=== PATIENT | male | born 1975 | race Caucasian/White ===

== ENCOUNTER 2018-09-10 18:39 | Emergency (ER) | payer OTHER ==
[~2018-09-10] VITALS: Ht 175.3 cm; Wt 99.5 kg
[2018-09-10 18:48] VITALS: BP 119/81; PULSE 110; RESP 20; Ht 175.3 cm; Wt 99.5 kg
[2018-09-10] MEDS ORDERED: predniSONE 20 MG TAB PO ONE (19:30)
[2018-09-10] MEDS ORDERED: DIPHENHYDRAMINE 50 MG INJ IM ONE (19:30)
[2018-09-10] MEDS ORDERED: FAMOTIDINE 20 MG TAB PO ONE (19:30)
[2018-09-10] MEDS ORDERED: DIPHTH/TET/ACEL PERTUSS (ADULT) 0.5 ML VIAL IM* ONE (19:30)
[2018-09-10] MEDS ORDERED: PRED20TA PO (19:49)
[2018-09-10] MEDS ORDERED: BEN50 PO (19:49)
--- NOTE | 2018-09-10 19:52 | ERD ---
ER Documentation Chief Complaint Chief Complaint states bee sting left side of neck 3 hours ago, c/o neck redness/sob HPI 43-year-old male presents with complaint of bee sting. States that he got stung the left side of his neck 3 hours ago. Since then he said he experienced itching all over his body which is since subsided. Denies any wheezing, respiratory distress, vomiting, abdominal pain, dizziness. States that he is not up-to-date on his vaccines. ROS All systems reviewed and are negative except as per history of present illness. Medications Home Meds Active Scripts Prednisone* (Prednisone*) 20 Mg Tab, 60 MG PO DAILY for 4 Days, TAB Prov:STAN PINEDA 09/10/18 Diphenhydramine Hcl* (Benadryl*) 50 Mg Cap, 50 MG PO Q6H PRN for ITCHING/RASH, #30 CAP Prov:STAN PINEDA 09/10/18 Allergies Allergies: Coded Allergies: No Known Drug Allergies (Verified Allergy, Unknown, 09/10/18) PMhx/Soc Medical and Surgical Hx: pt denies Medical Hx, pt denies Surgical Hx Hx Alcohol Use: No Hx Substance Use: No Hx Tobacco Use: No Smoking Status: Never smoker FmHx Family History: No diabetes, No coronary disease, No other Physical Exam Vitals Vital Signs Date Temp Pulse Resp B/P (MAP) Pulse Ox O2 O2 Flow FiO2 Time Delivery Rate 09/10/18 97.6 110 20 119/81 100 18:48 (94) Physical Exam Const: No acute distress Head: Atraumatic Eyes: Normal Conjunctiva ENT: Normal External Ears, Nose and Mouth. Airway is patent and clear. There is no tongue edema. There is no angioedema noted. Neck: Full range of motion. No meningismus. Resp: Clear to auscultation bilaterally Cardio: Regular rate and rhythm, no murmurs Abd: Soft, non tender, non distended. Normal bowel sounds Skin: No petechiae or rashes. Mild erythema noted to the left neck without any edema. No retained foreign bodies noted. Back: No midline or flank tenderness Ext: No cyanosis, or edema Neur: Awake and alert Psych: Normal Mood and Affect Results 24 hrs Current Medications Medications Dose Sig/Olivier Start Time Status Last (Trade) Ordered Route PRN Stop Time Admin Dose Reason Admin Diphtheria/ 0.5 ml ONCE ONCE 09/10/18 DC 09/10/18 Tetanus/Acell IM* 19:30 09/10/18 19:34 Pertussis 19:31 (Adacel) 50 mg ONCE ONCE 09/10/18 DC 09/10/18 Diphenhydrami IM 19:30 09/10/18 19:34 ne HCl 19:31 (Benadryl) Famotidine 40 mg ONCE ONCE 09/10/18 DC 09/10/18 (Pepcid) PO 19:30 09/10/18 19:33 19:31 Prednisone 60 mg ONCE ONCE 09/10/18 DC 09/10/18 (Prednisone) PO 19:30 09/10/18 19:33 19:31 Procedures/MDM MDM: Patients presentation is consistent with allergic reaction. Patient treated with prednisone, pepcid, and benadryl. Patient discharged with 4 day course of prednisone and benadryl. At no time during the ER course did patient exhibit signs of anaphylaxis, respiratory distress, or angioedema. Patient's vitals were WNL throughout the ER course at time of discharge. In addition, since patient was not up-to-date his vaccines patient was given Tdap. Patient discharged with strict ER precauctions. Patient advised to follow up with PMD. All questions answered at discharge. Departure Diagnosis: Primary Impression: Bee sting reaction Encounter type: initial encounter Injury intent: undetermined intent Qualified Codes: T63.444A - Toxic effect of venom of bees, undetermined, initial encounter Condition: Stable Patient Instructions: Allergic Reaction, Insect (Local) Referrals: [facility] YOU HAVE RECEIVED A MEDICAL SCREENING EXAM AND THE RESULTS INDICATE THAT YOU DO NOT HAVE A CONDITION THAT REQUIRES URGENT TREATMENT IN THE EMERGENCY DEPARTMENT. FURTHER EVALUATION AND TREATMENT OF YOUR CONDITION CAN WAIT UNTIL YOU ARE SEEN IN YOUR DOCTORS OFFICE WITHIN THE NEXT 1-2 DAYS. IT IS YOUR RESPONSIBILITY TO MAKE AN APPOINTMENT FOR FOLOW-UP CARE. IF YOU HAVE A PRIMARY DOCTOR --you should call your primary doctor and schedule an appointment IF YOU DO NOT HAVE A PRIMARY DOCTOR YOU CAN CALL OUR PHYSICIAN REFERRAL HOTLINE AT IF YOU CAN NOT AFFORD TO SEE A PHYSICIAN YOU CAN CHOSE FROM THE FOLLOWING [facility] [address] [facility]. [facility] [address] [facility] [address] [facility] [address] [facility] [address] [facility]. [facility] [address] Additional Instructions: FOLLOW UP WITH YOUR PRIMARY CARE PHYSICIAN TOMORROW.Return to this facility if you are not improving as expected. STAN PINEDA Sep 10, 2018 19:52
== END 2018-09-10 20:01 | disposition home or self-care (01) ==
LOC: FTE 18:39
DX: T63.444A Toxic effect of venom of bees, undetermined, initial encounter (principal); Z23 Encounter for immunization
CPT/HCPCS: 90471; 90715; 96372; J1200; J7512; Z7502; Z7610